=== PATIENT | female | born 1975 | race Caucasian/White ===

== ENCOUNTER 2016-05-30 18:33 | Emergency (ER) | payer BC ==
[2016-05-30 19:00] VITALS: RESP 18; TEMP 97.3
--- NOTE | 2016-05-30 21:05 | PDOC ---
Back Pain / Injury HPI - General Chief Complaint: Neck / Back Complaint Stated Complaint: Work related--c/o back pain/strain Date Seen by Provider: 05/30/16 Time Seen by Provider: 18:35 Source: Patient Exam Limitations: POSITIVE: No limitations Nurse's Notes Reviewed & Considered: Yes - History of Present Illness Initial Comments: The patient is a 40-year-old female who presents to the emergency department with low back pain. 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 Initially the pain wasn't too bad however now it has intensified to about a 45 out of 10. The pain is located primarily in her right lower back with some radiation into her left posterior thigh. She denies numbness or weakness in her leg or any other associated symptoms. She has not had any prior history of back problems. She denies any other associated symptoms or complaints - Patient Home Medications Home Medications: Home Medications Citalopram Hydrobromide [Celexa] 1 tab PO DAILY #90 tab 01/08/16 Cyclobenzaprine HCl [Flexeril] 10 mg PO TID PRN #20 tab 05/30/16 - Patient Allergies Allergies/Adverse Reactions: Allergies Allergy/AdvReac Type Severity Reaction Status Date / Time No Known Drug Allergies Allergy NOT Verified 05/30/16 18:41 APPLICABLE Past Medical History - heen HEENT History: Denies History Cardiovascular History: Denies History Respiratory History: Denies History Gastrointestinal History: Denies History Genitourinary History: Kidney Stones Endocrine History: Hyperthyroidism Additional Endocrine History: parathyroid removed Musculoskeletal History: Denies History Prosthesis or Implant: No (BREAST) Neurological History: Denies History Blood Disorders: Denies History Psychiatric History: Depression History of Sexually Transmitted Diseases: No Female Reproductive History: Denies History Obstetrical History: Denies History Cancer History: Denies History In Past Year Been Physically Harmed or Verbally Threatened: No History of MDRO: No History of Other Communicable Diseases: No Tobacco Use: Former Smoker Alcohol Use: Occasionally How much alcohol do you normally drink a day?: daily Substance Use Type: None Previous Surgical History: Yes Type / Date of Surgery: EXPLORATORY LAP W/ APPENDIX REMOVAL. HYSTERECTOMY, parathyroid removal. BREAST IMPLANTS. COLONOSCOPY. VENTRAL HERNIA Anesthesia Reactions: No Malignant Hyperthermia: No Significant Family History: Heart disease, Cancer, Diabetes Past Medical History Reviewed: Reviewed - No Changes ROS - Limitations ROS Limitations: No Limitations (Review of systems otherwise noncontributory) Back Physical Assessment - General Appearance General Appearance: REPORTS: Alert, Cooperative, No Acute Distress - HEENT HEENT: POSITIVE: Head Inspection Nml - Neck Neck: POSITIVE: Trachea Midline - Respiratory / CVS Respiratory / CVS: POSITIVE: Breath Sounds Normal, No Respiratory Distress, Heart Sounds Normal, Regular Rate/Rhythm - Abdomen Abdomen: Soft: (All Quadrants), Denies Tenderness: (All Quadrants) - Back Back: REPORTS: Normal Inspection, Other (She does have tenderness over the right lower lumbar region, some midline tenderness in the lower lumbar spine, no obvious swelling or deformity) - Skin Skin: REPORTS: Intact, No Rash - Extremities Extremity Assessment: Normal ROM: (ALL), Normal Inspection: (ALL) - Neurological / Psychological 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 The x-ray of her lower back is unremarkable. At this point her hasn't patient is most consistent with a lumbar strain. She does have some mild radicular symptoms and a disc herniation cannot be completely ruled out. The patient is advised to take ibuprofen 600 mg every 6 hours as needed for pain as well as Flexeril 10 mg every 8 hours as needed for pain/spasm. She is advised to try heat and/or ice. She'll return to the emergency room if increased pain, increased numbness or weakness in her legs, any worsening or change in symptoms. She is advised follow-up with primary care if no improvement in 3-5 days. She was given a note that she could return to work on 06/03/2016 which is when her next shift is scheduled. - Consult Counseled: POSITIVE: Patient, RE: Radiology Results, RE: DX, RE: Need for F/U Patient Care Time - Estimated PCT Patient Care Time (In Minutes): 15 Vital Signs - Recent Vital Signs Vital Signs: Vital Signs (Last 8 hours) Temp Pulse Resp BP Pulse Ox 05/30/16 18:34 97.3 F 85 18 151/125 93 - VS Reviewed Vital Signs Reviewed: Yes Discharge Clinical Impression: Lumbar strain Discharge Disposition: Discharged to Home Condition: Stable Prescriptions / Orders: Cyclobenzaprine HCl [Flexeril] 10 mg PO TID PRN #20 tab PRN Reason: Spasms Patient Instructions Given at Discharge: Low Back Strain (ED) Additional Instructions: The pain in the right lower back is most likely related to a muscle strain and associated spasm. Recommend ibuprofen 600 mg every 6 hours as needed for pain. Ice or heat. You've also been prescribed Flexeril 10 mg every 8 hours as needed for pain/spasm. You have been cleared to return to work on Friday, 06/02. If you are having continued pain I would recommend follow-up prior to returning to work. Follow Up With: WYATT SIMS [Primary Care Provider] -
--- NOTE | 2016-05-30 22:03 | DI ---
LUMBAR SPINE SERIES, 05/30/2016 6:49 PM: Clinical History: Low back pain with radiation to the right leg. Previous Exam: None at this facility. Upright AP and lateral views are submitted. The vertebral bodies are of normal height and size. There is disc space narrowing at L3-4 through L5-S1 with probable narrowing also at L2-3. There is a grade 1 spondylolisthesis at L5-S1. Extensive hypertrophic degenerative changes are present in the apophys eal joints bilaterally at L4-5 and L5-S1. The pedicles and remaining posterior elements are unremarka ble. Both SI joints are normal. Readin. Disc space narrowing from L3-4 through L5-S1 and possibly also at L2-3 with extensive degenerativ e proliferative arthritic changes in the apophyseal joints between L4-5 and L5-S1. 2. Grade 1 spondylolisthesis at L5-S1.
== END 2016-05-30 19:35 | disposition home or self-care (01) ==
LOC: ER 18:33
DX: S39.012A Strain of muscle, fascia and tendon of lower back, initial encounter (principal); X50.0XXA Overexertion from strenuous movement or load, initial encounter; Y93.F2 Activity, caregiving, lifting; Y92.239 Unspecified place in hospital as the place of occurrence of the external cause; Y99.0 Civilian activity done for income or pay
CPT/HCPCS: 72100; 99282

== ENCOUNTER → 2016-08-28 | Outpatient (CLI) | payer OTHER, BC ==
--- NOTE | 2016-08-28 17:34 | DI ---
MRI LUMBAR SPINE SCAN WITHOUT IV CONTRAST, 08/28/2016 1:58 PM: Clinical History: Lumbar radiculopathy. Previous Exam: None. Technique: Sagittal and axial T2 weighted; sagittal T1 weighted and T2 STIR; and axial PD. The vertebral bodies are of normal height and size. There is mild to moderate disc space narrowing at every lumbar level. All lumbar level show mild to moderate desiccation change. The cord terminates a t L1. The conus medullaris is normal. The T10-11 disc space is normal. T11-12 and T12-L1 disc spaces have bulging but not herniated discs without canal or neural foraminal stenosis. L1-2 disc space is n ormal. L2-3 through L5-S1 disc spaces have bulging but not herniated discs without canal or neural fo raminal stenosis. There is a grade 1 spondylolisthesis at L5-S1 with hypertrophic changes of the apop hyseal joints. Anterior to the L5-S1 disc space are 2 and possibly 3 circular lesions measuring about 20 mm in diameter and contain fluid. This patient had a CT scan of the abdomen and pelvis on 3, and this did not show a similar type lesion as on the current exam. A pelvic ultrasound is recomme nded for further evaluation of these cystic-appearing structures. Readin. There are bulging but not herniated discs without canal or neural foraminal stenosis at T11-12, T 12-L1, and L2-3 through L5-S1. 2. The T10-11 and L1-2 disc spaces are normal. 3. There are multiple fluid containing structure is anterior to the L5-S1 disc space that measure ab out 20 mm in diameter. Followup with a pelvic ultrasound is recommended to see if the etiology of the se cystic structures can be identified.
== END ==
LOC: MRI 13:48
PROVIDERS: ATTEND Physician Assistant
DX: M54.16 Radiculopathy, lumbar region (principal); M47.815 Spondylosis without myelopathy or radiculopathy, thoracolumbar region; M47.817 Spondylosis without myelopathy or radiculopathy, lumbosacral region
CPT/HCPCS: 72148

== ENCOUNTER → 2016-09-04 | Outpatient (CLI) | payer OTHER ==
--- NOTE | 2016-09-05 09:00 | DI ---
XR L-SPINE 2-3 VW,09/04/2016 10:46 AM: Clinical History: Back pain Previous Exam: May 30, 2016 Findings: Lateral flexion and extension views are of the lumbar spine are obtained, and demonstrate grade 1 ant erolisthesis of L5 on S1. There is some facet hypertrophy. A nonobstructive bowel gas pattern is noted. Impression: Grade 1 anterolisthesis of L5 on S1 and degenerative facet hypertrophy unchanged from the prior exam.
== END ==
LOC: ORTHO 17:11
PROVIDERS: ATTEND Physician Assistant
DX: M54.5 Low back pain (principal); R29.2 Abnormal reflex; M47.26 Other spondylosis with radiculopathy, lumbar region; X50.1XXA Overexertion from prolonged static or awkward postures, initial encounter; X50.0XXA Overexertion from strenuous movement or load, initial encounter; Y93.F2 Activity, caregiving, lifting; Y92.230 Patient room in hospital as the place of occurrence of the external cause; Y99.0 Civilian activity done for income or pay
CPT/HCPCS: 72100

== ENCOUNTER → 2016-09-17 | Outpatient (CLI) | payer OTHER, BC ==
--- NOTE | 2016-09-17 23:53 | DI ---
US PELVIC COMPLETE (NON OB),09/17/2016 11:02 AM: Clinical History: Abnormal MRI showing pelvic cysts. Previous Exam: MRI performed August 28, 2016 Findings: Multiple grayscale and color Doppler sonographic images are obtained through the pelvis. There are a few right ovarian cyst. There is normal Doppler flow within the right ovary. The left ovary is not well evaluated on this exam. Impression: 1. Follicles within the right ovary
== END ==
LOC: US 10:58
PROVIDERS: ATTEND Family Medicine
DX: M43.17 Spondylolisthesis, lumbosacral region (principal)
CPT/HCPCS: 76856

== ENCOUNTER 2016-10-02 07:42 | Day surgery (SDC) | payer OTHER, BC ==
--- NOTE | 2016-10-02 08:29 | GEN.OPNOTE ---
Facet Injection Procedure: Facet Injection with Local Anesthetic and Steriod Procedure Code - Neurosurgery: 83122 : L/S Spine Facet/Med, 1st, 56541 : L/S Spine Facet/Med, 2nd Level: Bilateral L45, L5S1 Facet Preoperative Diagnosis: Lumbar Spondylosis Postoperative Diagnosis: same -: Consent: Rationale for procedure, nature of procedure, possible risks and benefits were discussed with the patient. Risks including allergic reaction to medications, known effects of steroid medications including transient elevations in blood sugar with aggravation of pre-existing diabetes and remote risk of aseptic necrosis of the hip. Infection or bleeding with potential risk of neurologic injury with weakness, paralysis or were all reviewed with the patient who wished to proceed. Anesthesia, sedation: No intravenous access or sedation was used. Physiologic monitoring of pulse and oxygen saturation was utilized. Procedure: The patient was placed prone on the operating room table, prepped with Chloroprep and sterilely draped. The skin was anesthetized with 1% Buffered Xylocaine. Under fluoroscopic control a 22-gauge needle was advanced L45 and L5S1 facet joint on the right. Omnipaque was injected under real-time fluoroscopy demonstrating an facet arthrogram. Following this 2ml of a mixture of kenalog(40mg/ml) and Ropivacaine was injected. AP and lateral images of the final needle placement was obtained. The same was done on the left. The needle was removed and the patient returned to the post procedure recovery room where they were monitored for any side effects. Pain assessment: Preprocedure pain []/10, post procedure pain []/10. Discharge instructions: Patient was given a pain log to be filled out and returned. A delayed response to the steroids of 2-5 days was discussed.
[2016-10-02 08:31] VITALS: RESP 15; TEMP 97
[2016-10-02] MEDS ORDERED: BUPivacaine Inj 0.25% PF - 10ml vial EPIDURAL ONE (09:00)
[2016-10-02] MEDS ORDERED: TRIAMCINOLONE ACETONIDE 40 MG/1 ML IAC ONE (09:00)
== END 2016-10-02 08:32 | disposition home or self-care (01) ==
LOC: SDSC 07:42
PROVIDERS: ATTEND Pain Medicine Interventional Pain Medicine
DX: M47.816 Spondylosis without myelopathy or radiculopathy, lumbar region (principal)
CPT/HCPCS: 64493; 64494; 76000; J3301; S0020